=== PATIENT | female | born 1985 | race African-American/Black ===

== ENCOUNTER 2016-11-27 18:38 | Emergency (ER) | payer BC ==
[~2016-11-27] VITALS: Ht 149.9 cm; Wt 87.1 kg
[~2016-11-27 18:38] MED LIST: HYDR-2758 PO; HYDR-971 PO; LEVO25TA4 PO; NIFE10CA PO; ONDA4TAB10 SL; PANT20TA2 PO
[2016-11-27] MEDS ORDERED: IV NORMAL SALINE 1000ML BAG 1,000 ML IV ONE (19:45)
[2016-11-27] MEDS ORDERED: ONDANSETRON PF 4 MG/2 ML VIAL. IV PRN (19:45)
[2016-11-27 19:50] LABS: BILIRUBIN,URINE NEGATIVE (NEG); GLUCOSE,URINE NEGATIVE (NEG); NITRITE,URINE NEGATIVE (NEG); PROTEIN,URINE NEGATIVE (NEG-TRACE)
[2016-11-27] MEDS ORDERED: LIDO:MAALOX:DONNATAL 1:1:1 15 ML SINGLE DOSE SWSW ONE (20:00)
[2016-11-27] MEDS ORDERED: FAMOTIDINE 20 MG/2 ML VIAL IVP ONE (20:00)
[2016-11-27 20:04] LABS: BACTERIA,URINE FEW /HPF (0-FEW); RBC,URINE 0 /HPF (0-2); SQUAMOUS EPITHELIAL CELL,UR MOD /LPF
--- NOTE | 2016-11-27 20:04 | PHYS DOC ---
Past Medical History Past Medical History: Fibromyalgia, Hypothyroid, Migraines Additional Past Medical Histor: IBS Past Surgical History: Cholecystectomy, Hysterectomy, Tubal ligation Additional Past Surgical Histo: L)Ovarian cyst removed. Alcohol Use: Occasionally Drug Use: None Adult General Chief Complaint Chief Complaint: NAUSEA/VOMITING/DIARRHA HPI HPI 31-year-old female presenting to the emergency department today with nausea vomiting for the last week. Its worse with eating improved with rest. His pain that is nonradiating mild intermittent. She denies fevers or chills. No specific timing. Review of systems is negative for fevers chills headache cough shortness of breath. All other review of systems is negative unless otherwise noted in history of present illness. Pertinent physical exam findings showed a soft nontender abdomen without rebound tenderness or guarding. Negative McBurney's point. Negative Mathew sign. Otherwise unremarkable. ED course: 31-year-old female presenting with abdominal pain. Soft nontender abdomen. Labs obtained. Pepcid and GI cocktail given. labs obtained including ua and preg. ua equivocal. u cx neg. pt dced home to f/u with pcp in 2-3 days. pt comfortable with plan. Review of Systems Review of Systems SEE ABOVE. Current Medications Current Medications Current Medications Medications (Trade) Dose Ordered Sig/Charli Start Time Stop Time Status Last Admin Dose Admin Famotidine (Pepcid) 20 mg 1X ONCE 11/27/16 20:00 11/27/16 20:01 DC Multi-Ingredient Mouthwash/Gargle (Gi Cocktail Single Dose) 15 ml 1X ONCE 11/27/16 20:00 11/27/16 20:01 DC Ondansetron HCl (Zofran) 4 mg PRN Q30MIN PRN 11/27/16 19:45 11/27/16 21:35 DC 11/27/16 20:40 4 MG Sodium Chloride 1,000 ml @ 1,000 mls/hr 1X ONCE 11/27/16 19:45 11/27/16 20:44 DC 11/27/16 20:40 1,000 MLS/HR Allergies Allergies Allergies Coded Allergies Type Severity Reaction Last Updated Verified sulfamethoxazole Allergy Severe Angioedema. 02/04/15 Yes trimethoprim Allergy Severe Angioedema. 02/04/15 Yes prochlorperazine Allergy Intermediate Palpitations 12/05/15 Yes metoclopramide Adverse Reaction Severe Dystonia 12/05/15 Yes Physical Exam Physical Exam Constitutional: Well developed, well nourished, no acute distress, non-toxic appearance. [] HENT: Normocephalic, atraumatic, bilateral external ears normal, oropharynx moist, no oral exudates, nose normal. [] Eyes: PERRLA, EOMI, conjunctiva normal, no discharge. [] Neck: Normal range of motion, no tenderness, supple, no stridor. [] Cardiovascular:Heart rate regular rhythm, no murmur [] Lungs & Thorax: Bilateral breath sounds clear to auscultation [] Abdomen: see above Skin: Warm, dry, no erythema, no rash. [] Back: No tenderness, no CVA tenderness. [] Extremities: No tenderness, no cyanosis, no clubbing, ROM intact, no edema. [] Neurologic: Alert and oriented X 3, normal motor function, normal sensory function, no focal deficits noted. [] Psychologic: Affect normal, judgement normal, mood normal. [] Current Patient Data Vital Signs Vital Signs Date Time Temp Pulse Resp B/P (MAP) Pulse Ox O2 Delivery O2 Flow Rate FiO2 11/27/16 20:27 112 20 155/99 (117) 98 Room Air 11/27/16 19:42 99.3 99.3 Lab Values Laboratory Tests Test 11/27/16 18:48 11/27/16 19:36 11/27/16 20:00 POC Urine HCG, Qualitative Hcg negative (Negative) Urine Collection Type Unknown Urine Color Yellow Urine Clarity Clear Urine pH 7.0 Urine Specific [place] 1.010 Urine Protein Negative mg/dL (NEG-TRACE) Urine Glucose (UA) Negative mg/dL (NEG) Urine Ketones (Stick) Negative mg/dL (NEG) Urine Blood Negative (NEG) Urine Nitrite Negative (NEG) Urine Bilirubin Negative (NEG) Urine Urobilinogen Dipstick 1.0 mg/dL (0.2 mg/dL) Urine Leukocyte Esterase Moderate (NEG) Urine RBC 0 /HPF (0-2) Urine WBC 11-20 /HPF (0-4) Urine Squamous Epithelial Cells Mod /LPF Urine Bacteria Few /HPF (0-FEW) White Blood Count 7.4 x10^3/uL (4.0-11.0) Red Blood Count 4.97 x10^6/uL (3.50-5.40) Hemoglobin 14.8 g/dL (12.0-15.5) Hematocrit 42.0 % (36.0-47.0) Mean Corpuscular Volume 85 fL (79-100) Mean Corpuscular Hemoglobin 30 pg (25-35) Mean Corpuscular Hemoglobin Concent 35 g/dL (31-37) Red Cell Distribution Width 12.9 % (11.5-14.5) Platelet Count 404 x10^3/uL (140-400) H Neutrophils (%) (Auto) 50 % (31-73) Lymphocytes (%) (Auto) 42 % (24-48) Monocytes (%) (Auto) 6 % (0-9) Eosinophils (%) (Auto) 2 % (0-3) Basophils (%) (Auto) 1 % (0-3) Neutrophils # (Auto) 3.7 x10^3uL (1.8-7.7) Lymphocytes # (Auto) 3.1 x10^3/uL (1.0-4.8) Monocytes # (Auto) 0.4 x10^3/uL (0.0-1.1) Eosinophils # (Auto) 0.1 x10^3/uL (0.0-0.7) Basophils # (Auto) 0.1 x10^3/uL (0.0-0.2) Sodium Level 138 mmol/L (136-145) Potassium Level 3.9 mmol/L (3.5-5.1) Chloride Level 104 mmol/L (98-107) Carbon Dioxide Level 23 mmol/L (21-32) Anion Gap 11 (6-14) Blood Urea Nitrogen 9 mg/dL (7-20) Creatinine 0.7 mg/dL (0.6-1.0) Estimated GFR (Cockcroft-Gault) 117.3 BUN/Creatinine Ratio 13 (6-20) Glucose Level 100 mg/dL (70-99) H Calcium Level 9.3 mg/dL (8.5-10.1) Total Bilirubin 0.6 mg/dL (0.2-1.0) Aspartate Amino Transferase (AST) 26 U/L (15-37) Alanine Aminotransferase (ALT) 17 U/L (14-59) Alkaline Phosphatase 88 U/L (46-116) Total Protein 8.4 g/dL (6.4-8.2) H Albumin 4.0 g/dL (3.4-5.0) Albumin/Globulin Ratio 0.9 (1.0-1.7) L Lipase 115 U/L (73-393) Laboratory Tests 11/27/16 20:00 Laboratory Tests 11/27/16 20:00 Microbiology 11/27/16 Urine Culture - Final, Complete 11/27/16 Urine Culture Result 1 (JAYME) - Final, Complete EKG EKG [] Radiology/Procedures Radiology/Procedures [] Course & Med Decision Making Course & Med Decision Making Pertinent Labs and Imaging studies reviewed. (See chart for details) [] Dragon Disclaimer Dragon Disclaimer This electronic medical record was generated, in whole or in part, using a voice recognition dictation system. Departure Departure Impression: Primary Impression: Nausea and vomiting Disposition: HOME, SELF-CARE Condition: STABLE Referrals: NON,STAFF (PCP) JENNY SPARROW MD Patient Instructions: Nausea and Vomiting Scripts Famotidine (PEPCID) 40 Mg Tablet 40 MG PO HS, #7 TAB 0 Refills Prov: JOHNNA ALLEN MD 11/27/16 Ondansetron (ZOFRAN ODT) 4 Mg Tab.rapdis 1 TAB SL PRN Q8HRS Y for NAUSEA, #6 TAB Prov: JOHNNA ALLEN MD 11/27/16 Morphine Sulfate (MORPHINE SULFATE) 15 Mg Tablet 1 TAB PO PRN Q6-8HRS Y for SEVERE PAIN, #8 TAB Prov: JOHNNA ALLEN MD 11/27/16 JOHNNA ALLEN MD Nov 27, 2016 20:04
[2016-11-27 20:11] LABS: BASO # 0.1 x10^3/uL (0.0-0.2); BASO % 1 % (0-3); EOS % 2 % (0-3); HEMOGLOBIN 14.8 g/dL (12.0-15.5); LYMPH # 3.1 x10^3/uL (1.0-4.8); LYMPH % 42 % (24-48); MEAN CORPUSCULAR HEMOGLOBIN 30 pg (25-35); MEAN CORPUSCULAR HGB CONC 35 g/dL (31-37); MEAN CORPUSCULAR VOLUME 85 fL (79-100); MONO % 6 % (0-9); NEUT % 50 % (31-73); PLATELET COUNT 404 x10^3/uL (140-400); RED BLOOD COUNT 4.97 x10^6/uL (3.50-5.40); RED CELL DISTRIBUTION WIDTH 12.9 % (11.5-14.5); WHITE BLOOD COUNT 7.4 x10^3/uL (4.0-11.0)
[2016-11-27 20:27] VITALS: BP 155/99
[2016-11-27 20:33] LABS: CALCIUM 9.3 mg/dL (8.5-10.1); CREATININE 0.7 mg/dL (0.6-1.0); GFR 117.3; POTASSIUM 3.9 mmol/L (3.5-5.1)
[2016-11-27 20:39] LABS: ALBUMIN/GLOBULIN RATIO 0.9 (1.0-1.7); TOTAL BILIRUBIN 0.6 mg/dL (0.2-1.0); TOTAL PROTEIN 8.4 g/dL (6.4-8.2)
[2016-11-27] MEDS ORDERED: FAMO40TA57 PO (21:12)
[2016-11-27] MEDS ORDERED: MORP15TA PO (21:12)
[2016-11-27] MEDS ORDERED: ONDA4TAB10 SL (21:12)
== END 2016-11-27 21:20 | disposition home or self-care (01) ==
LOC: ER 18:38
DX: R11.2 Nausea with vomiting, unspecified (principal); R10.9 Unspecified abdominal pain; G43.909 Migraine, unspecified, not intractable, without status migrainosus; M79.7 Fibromyalgia; E03.9 Hypothyroidism, unspecified; Z90.49 Acquired absence of other specified parts of digestive tract; Z90.710 Acquired absence of both cervix and uterus; Z98.51 Tubal ligation status
CPT/HCPCS: 36415; 80053; 81001; 81025; 83690; 85027; 87086; 96361; 96374; 99284; J2405; J7030

== ENCOUNTER 2017-04-10 13:04 | Emergency (ER) | payer BC ==
[~2017-04-10 13:04] MED LIST changes: +FAMO40TA57 PO; +MORP15TA PO
[2017-04-10 14:10] LABS: BILIRUBIN,URINE NEGATIVE (NEG); GLUCOSE,URINE NEGATIVE (NEG); NITRITE,URINE NEGATIVE (NEG); PROTEIN,URINE 30 mg/dL (NEG-TRACE)
[2017-04-10 14:30] LABS: BACTERIA,URINE FEW /HPF (0-FEW); RBC,URINE 0 /HPF (0-2); SQUAMOUS EPITHELIAL CELL,UR OCC /LPF
[2017-04-10] MEDS ORDERED: ONDANSETRON ODT 4 MG TAB.RAPDIS. PO ONE (14:30)
[2017-04-10] MEDS ORDERED: HYDROcodone/APAP 5/325MG 1 TAB TABLET PO ONE (14:30)
[2017-04-10] MEDS ORDERED: PHENAZOPYRIDINE 200 MG TABLET. PO ONE (14:30)
[2017-04-10] MEDS ORDERED: ONDA4TAB10 PO (14:56)
[2017-04-10] MEDS ORDERED: CIPR500T94 PO (14:56)
[2017-04-10] MEDS ORDERED: PHEN-318 PO (14:56)
[2017-04-10] MEDS ORDERED: HYDR-2758 PO (14:56)
--- NOTE | 2017-04-10 14:56 | PHYS DOC ---
Past Medical History Past Medical History: Fibromyalgia, Hypothyroid, Migraines Additional Past Medical Histor: IBS Past Surgical History: Cholecystectomy, Hysterectomy, Tubal ligation Additional Past Surgical Histo: L)Ovarian cyst removed. Alcohol Use: Occasionally Drug Use: None Adult General Chief Complaint Chief Complaint: URINARY FREQUENCY HPI HPI He is a pleasant 32-year-old -Northern Irish female 003 who sent a hysterectomy presents with UTI symptoms like progressively worse over last week or so. Patient noted increased frequency and urgency we'll go now presently worst local soup with abdominal pain with no mild radiation to the left flank. She describesfevers or chills just increasing pain with increased frequency urgency. She denies any hematuria or vaginal bleeding. She denies any prior history of sexual transmitted diseases or recent trauma to her vagina. Patient denies any travel outside the country nausea, vomiting, diarrhea. Since pain is moderate worse with increased frequency and urgency Review of Systems Review of Systems Constitutional: Subjective fevers and chills not actual documented fever. Eyes: Denies change in visual acuity, redness, or eye pain [] HENT: Denies nasal congestion or sore throat [] Respiratory: Denies cough or shortness of breath [] Cardiovascular: No additional information not addressed in HPI [] GI: Complains of abdominal pain without nausea vomiting diarrhea or stool problems. : Does complain of dysuria urgency or frequency without hematuria. Musculoskeletal: Denies back pain or joint pain has slight flank pain on the left Integument: Denies rash or skin lesions [] Neurologic: Denies headache, focal weakness or sensory changes [] Endocrine: Denies polyuria or polydipsia [] Current Medications Current Medications Current Medications Medications (Trade) Dose Ordered Sig/Charli Start Time Stop Time Status Last Admin Dose Admin Acetaminophen/ Hydrocodone Bitart (Lortab 5/325) 2 tab 1X ONCE 04/10/17 14:30 04/10/17 14:31 DC 04/10/17 14:30 2 TAB Ondansetron HCl (Zofran Odt) 4 mg 1X ONCE 04/10/17 14:30 04/10/17 14:31 DC 04/10/17 14:29 4 MG Phenazopyridine HCl (Pyridium) 200 mg 1X ONCE 04/10/17 14:30 04/10/17 14:31 DC 04/10/17 14:30 200 MG Allergies Allergies Allergies Coded Allergies Type Severity Reaction Last Updated Verified sulfamethoxazole Allergy Severe Angioedema. 02/04/15 Yes trimethoprim Allergy Severe Angioedema. 02/04/15 Yes prochlorperazine Allergy Intermediate Palpitations 12/05/15 Yes metoclopramide Adverse Reaction Severe Dystonia 12/05/15 Yes Physical Exam Physical Exam Vital signs recorded on the chart patient noted to be tachycardic likely secondary to pain Constitutional: Well developed, well nourished, no acute distress, non-toxic appearance. [] Cardiovascular:Heart rate regular rhythm, no murmur [] Lungs & Thorax: Bilateral breath sounds clear to auscultation [] Abdomen: Bowel sounds normal, soft, no masses, no pulsatile masses. I'll tenderness to palpation in the suprapubic region with no voluntary guarding no rebound organomegaly. No Mathew's or McBurney's point tenderness to palpation.[ ] Skin: Warm, dry, no erythema, no rash. [] Back: No tenderness, no CVA tenderness. [] Neurologic: Alert and oriented X 3, Psychologic: Affect normal, judgement normal, mood normal. [] Current Patient Data Vital Signs Vital Signs Date Time Temp Pulse Resp B/P (MAP) Pulse Ox O2 Delivery O2 Flow Rate FiO2 04/10/17 13:28 98.8 107 18 98 Room Air 98.8 Lab Values Laboratory Tests Test 04/10/17 13:25 Urine Color Yellow Urine Clarity Clear Urine pH 8.0 Urine Specific [place] >=1.030 Urine Protein 30 mg/dL (NEG-TRACE) Urine Glucose (UA) Negative mg/dL (NEG) Urine Ketones (Stick) Negative mg/dL (NEG) Urine Blood Negative (NEG) Urine Nitrite Negative (NEG) Urine Bilirubin Negative (NEG) Urine Urobilinogen Dipstick 1.0 mg/dL (0.2 mg/dL) Urine Leukocyte Esterase Small (NEG) Urine RBC 0 /HPF (0-2) Urine WBC 1-4 /HPF (0-4) Urine Squamous Epithelial Cells Occ /LPF Urine Bacteria Few /HPF (0-FEW) Urine Mucus Mod /LPF EKG EKG [] Radiology/Procedures Radiology/Procedures [] Course & Med Decision Making Course & Med Decision Making Pertinent Labs and Imaging studies reviewed. (See chart for details) she presents with UTI symptoms on her urinalysis demonstrates bacteria, or blood cell count is elevated glucose esterase or nitrates. But given her symptoms and she'll be treated. with antibiotics Pyridium and some for breakthrough pain. [] Dragon Disclaimer Dragon Disclaimer This electronic medical record was generated, in whole or in part, using a voice recognition dictation system. Departure Departure Impression: Primary Impression: Abdominal pain Additional Impression: UTI (urinary tract infection) Disposition: 01 HOME, SELF-CARE Condition: STABLE Referrals: NO PCP (PCP) Patient Instructions: Urinary Frequency, Urinary Tract Infection Additional Instructions: My discharge plan Follow up: In addition patient is asked to followup with their primary doctor, within a week for followup examination and to address patient's ongoing medical conditions. . Patient is advised that in the Emergency Department primary complaints are addressed and only in light of known signs and symptoms. Patient should return immediately to the emergency department if new signs and symptoms develop or patient's condition worsens in any way. At time of discharge patient was in stable condition and had verbalized understanding of the discharge instructions. Although there is no obvious evidence of appendicitis or intra-abdominal catastrophe at this time requiring surgical intervention or immediate medical management you could still develop these issues in the future. I would ask that you return immediately for any increasing symptoms question concerns. Scripts Hydrocodone Bit/Acetaminophen (HYDROCODONE-APAP 5-325 ) 1 Each Tablet 1-2 TAB PO PRN Q6HRS Y for PAIN for 5 Days, #10 TAB 0 Refills Prov: MIRTA MANCUSO MD 04/10/17 Ondansetron (ZOFRAN ODT) 4 Mg Tab.rapdis 4 MG PO BID Y for NAUSEA/VOMITING for 5 Days, #10 TAB Prov: MIRTA MANCUSO MD 04/10/17 Phenazopyridine Hcl (PYRIDIUM) 200 Mg Tablet 200 MG PO TID for 3 Days, #9 TAB Prov: MIRTA MANCUSO MD 04/10/17 Ciprofloxacin Hcl (CIPRO) 500 Mg Tablet 1 TAB PO BID, #20 TAB Prov: MIRTA MANCUSO MD 04/10/17 Problem Qualifiers MIRTA MANCUSO MD Apr 10, 2017 14:56
[2017-04-10 15:25] VITALS: BP 145/95
== END 2017-04-10 15:25 | disposition home or self-care (01) ==
LOC: ER 13:04
DX: N39.0 Urinary tract infection, site not specified (principal); E03.9 Hypothyroidism, unspecified; M79.7 Fibromyalgia; K58.9 Irritable bowel syndrome, unspecified; Z90.49 Acquired absence of other specified parts of digestive tract; Z90.710 Acquired absence of both cervix and uterus; Z98.51 Tubal ligation status; Z88.2 Allergy status to sulfonamides; Z88.1 Allergy status to other antibiotic agents; Z88.8 Allergy status to other drugs, medicaments and biological substances
CPT/HCPCS: 81001; 87086; 99284; Q0162

== ENCOUNTER 2018-07-12 20:27 | Emergency (ER) | payer BC ==
[~2018-07-12] VITALS: Ht 149.9 cm; Wt 89.8 kg
[~2018-07-12 20:27] MED LIST changes: +CIPR500T94 PO; -HYDR-2758 PO; +HYDR-2761 PO; +HYDR-3164 PO; -HYDR-971 PO; +ONDA4TAB10 PO; +PHEN-318 PO
[2018-07-12 20:59] VITALS: BP 134/81
[2018-07-12] MEDS: HYDROcodone/APAP 5/325MG 1 TAB TABLET PO ONE (21:24)
--- NOTE | 2018-07-12 23:15 | PHYS DOC ---
Past Medical History Past Medical History: Fibromyalgia, Hypothyroid, Migraines, Sciatica Additional Past Medical Histor: IBS Past Surgical History: Cholecystectomy, Hysterectomy, Tubal ligation Additional Past Surgical Histo: L)Ovarian cyst removed. Alcohol Use: Occasionally Drug Use: None Adult General Chief Complaint Chief Complaint: LOWER EXT PAIN HPI HPI Patient is a 33 year old Afro-Sing[place]an female with history of irritable bowel syndrome and sciatica presents persistent left hip, buttock pain for the past several days. Denies trauma to this region. Patient's been evaluated at her PCP twice for the same condition and started on prednisone. Patient denies focal extremity weakness or loss of sensation. No loss of bowel or bladder sensation. No saddle anesthesia. Pain is with palpation, ambulation and movement. Patient states her pain is pearly controlled. No other acute symptoms or complaints. [] Review of Systems Review of Systems Review symptoms as per history of present illness. All other systems were reviewed and found to be within normal limits, except as documented in this note. Current Medications Current Medications Current Medications Medications (Trade) Dose Ordered Sig/Charli Start Time Stop Time Status Last Admin Dose Admin Acetaminophen/ Hydrocodone Bitart (Lortab 5/325) 2 tab 1X ONCE 07/12/18 22:00 07/12/18 22:00 DC 07/12/18 21:24 2 TAB Allergies Allergies Allergies Coded Allergies Type Severity Reaction Last Updated Verified sulfamethoxazole Allergy Severe Angioedema. 02/04/15 Yes trimethoprim Allergy Severe Angioedema. 02/04/15 Yes prochlorperazine Allergy Intermediate Palpitations 12/05/15 Yes metoclopramide Adverse Reaction Severe Dystonia 12/05/15 Yes Physical Exam Physical Exam Constitutional: Well developed, well nourished, moderate discomfort secondary to pain,. [] HENT: Normocephalic, atraumatic, bilateral external ears normal, oropharynx moist, no oral exudates, nose normal. [] Eyes: PERRL. [] Neck: Normal range of motion, no tenderness, supple, no stridor. [] Cardiovascular:Heart rate regular rhythm, no murmur [] Lungs & Thorax: Bilateral breath sounds clear to auscultation [] Abdomen: Bowel sounds normal, soft, no tenderness.[] Skin: Warm, dry, no erythema. [] Back: No CVA or midline CVA tenderness, left upper hip pain, tenderness with palpation and range of motion. Antalgic gait.[] Extremities: Lower extremity weakness or loss of sensation. Negative straight leg raising tests..[] Current Patient Data Vital Signs Vital Signs Date Time Temp Pulse Resp B/P (MAP) Pulse Ox O2 Delivery O2 Flow Rate FiO2 07/12/18 21:24 16 99 Room Air 07/12/18 20:59 100.2 120 134/81 (98) 100.2 EKG EKG [] Radiology/Procedures Radiology/Procedures [] Course & Med Decision Making Course & Med Decision Making Pertinent Labs and Imaging studies reviewed. (See chart for details) [Patient pain control while in the emergency department. Recommend close follow- up with PCP for further management of ongoing symptoms.] Dragon Disclaimer Dragon Disclaimer This electronic medical record was generated, in whole or in part, using a voice recognition dictation system. Departure Departure Impression: Primary Impression: Pain in left hip Disposition: HOME, SELF-CARE Condition: GOOD Patient Instructions: Hip Pain Additional Instructions: Please of directions provided to by your primary care provider. Contact his office tomorrow and schedule follow-up appointment.. MONICA CASTRO DO Jul 12, 2018 23:15
== END 2018-07-12 21:26 | disposition home or self-care (01) ==
LOC: ER 20:27
DX: M25.552 Pain in left hip (principal); M54.5 Low back pain; R53.1 Weakness; E03.9 Hypothyroidism, unspecified; G43.909 Migraine, unspecified, not intractable, without status migrainosus; K58.9 Irritable bowel syndrome, unspecified; Z90.49 Acquired absence of other specified parts of digestive tract; Z90.710 Acquired absence of both cervix and uterus; Z98.51 Tubal ligation status; Z88.2 Allergy status to sulfonamides; Z88.1 Allergy status to other antibiotic agents; Z88.8 Allergy status to other drugs, medicaments and biological substances
CPT/HCPCS: 99282

== ENCOUNTER → 2018-09-19 | Day surgery (SDC) | payer BC ==
[~2018-09-19] MED LIST changes: +HYDR50TA6 PO; +IV RINGERS,LACTATED 1000ML 1,000 ML IV SCH; +LIDOCAINE 2% PF 5 ML VIAL. ONE; +PROPOFOL 40 ML IV ONE
[2018-09-19 14:23] VITALS: BP 117/63
--- NOTE | 2018-09-19 22:48 | CONS ---
DATE OF CONSULTATION: 09/19/2018 REASON FOR CONSULTATION: Diarrhea and abdominal pain. HISTORY OF PRESENT ILLNESS: A 33-year-old -[place] female whose past medical history significant for anxiety, depression, fibromyalgia, hypertension, is seen with persistent abdominal pain, weight loss and diarrhea, has been present for the past several months. Family history is positive for Crohn's with an uncle. There is no melena and/or hematochezia with the diarrhea persists. With continued issues, she requests additional evaluation. PAST MEDICAL HISTORY: Anxiety, hypertension. ALLERGIES: REGLAN, MORPHINE, PROCHLORPERAZINE, TRIMETHOPRIM, AND SULFA. MEDICATIONS: Include Pepcid, hydrochlorothiazide and Zofran. FAMILY AND SOCIAL HISTORY: Significant for Crohn's with an uncle, breast cancer with mother and grandmother, colorectal cancer with grandfather. PAST SURGICAL HISTORY: Status post cholecystectomy, hysterectomy, tubal ligation. REVIEW OF SYSTEMS: As per records. PHYSICAL EXAMINATION: GENERAL: Reveals a well-nourished, well-developed -[place] female, who is alert, cooperative, in no acute distress. VITAL SIGNS: Temperature is 98.3, pulse 70, respirations 20. HEENT: Normocephalic and atraumatic head. Pupils and extraocular muscles are not tested. Sclerae anicteric. NECK: Supple. LUNGS: Clear. CARDIOVASCULAR: Reveals an S1, S2 without S3, S4 or appreciable murmur. ABDOMEN: Reveals soft abdomen, normal bowel sounds without appreciable hepatosplenomegaly. Left upper quadrant and left lower quadrant tenderness to deep palpation. EXTREMITIES: Reveals no cyanosis, clubbing or edema. IMPRESSION: Abdominal pain with diarrhea and a family history of Crohn's disease, the etiology is to be determined. Differential includes IBS, diabetes, celiac disease, collagenous colitis, malabsorption. Therefore, recommend upper endoscopy and colonoscopy. If these are unrevealing, a small bowel series would be pursued. ELVIN GARCIA MD DR: EMERITA/zheng JOB#: [id number] / [id number]
--- NOTE | 2018-09-20 17:07 | PATHOLOGY ---
[facility] Accession Number: [id number] . 01 Material submitted: . PART A: DUODENAL BIOPSY PART B: TERMINAL ILEUM BIOPSY PART C: RANDOM COLON BIOPSY . 01 Clinical history: . Abdominal pain, diarrhea A: Rule out celiac. B: Diarrhea C: Diarrhea . 02 Diagnosis: A. Duodenal biopsy: - No significant pathologic abnormalities, with few mucosal-associated lymphoid aggregates. . B. Terminal ileum biopsy: - No significant pathologic abnormalities, with several focally hyperplastic mucosal-associated lymphoid aggregates. . C. Colonic mucosa, random colon biopsy: - No significant pathologic abnormalities, with several mucosal-associated lymphoid aggregates. . (KEISHAM:donnie; 09/20/2018) MBR/09/20/2018 . 02 Comment: Sections of the duodenal biopsy reveal segments of duodenal and small intestine mucosa. Where best oriented, the mucosal villi show no sprue-like changes or significant inflammatory changes. There are a few mucosal-associated lymphoid aggregates. . Sections of the terminal ileum biopsy reveal multiple segments of small intestine mucosa. Where best oriented, the mucosal villi show no sprue-like changes or significant inflammatory changes. There are several focally hyperplastic mucosal-associated lymphoid aggregates. . Sections of the random colon biopsy reveal multiple segments of colonic mucosa containing several mucosal-associated lymphoid aggregates. There is no evidence of a chronic destructive colitis, lymphocytic colitis, or collagenous colitis. . (KEISHAM:donnie; 09/20/2018) . 02 Electronically signed: . Thomas Perez MD, Pathologist NPI- [id number] . 01 Gross description: . A. The specimen is received in formalin, labeled "Jin Aguila, duodenal biopsy", are multiple kelsey, mucosal fragments ranging from 0.1 cm up to 0.4 cm in greatest dimension and measuring 0.7 x 0.4 x 0.2 cm in aggregate, entirely submitted in A1. . B. The specimen is received in formalin, labeled "jin Aguila, terminal ileum, BX", are 4 irregular fragment of kelsey mucosal tissues ranging from a 0.4 cm up to 0.5 cm in greatest dimension and measuring 0.7 x 0.5 x 0.2 cm in aggregate, entirely submitted in B1. . C. The specimen is received in formalin, labeled "Jin Aguila, random colon BX", are several irregular fragment of kelsey mucosal tissues ranging from a 0.2 cm up to 0.8 cm in greatest dimension and measuring 1.0 x 0.7 x 0.2 cm in aggregate, entirely submitted in C1. (SWS; 09/19/2018) SHS/SHS . 02 Pathologist provided ICD-10: R10.9, R19.7 . 02 CPT . 029487, 011975, 389602 Specimen Comment: A courtesy copy of this report has been sent to Specimen Comment: [phone], . Specimen Comment: Report sent to / DR STEVEN Performed at: 01 [facility] [address], [place], [place] [id number] MD Florencio Albarado MD Phone: [phone] Performed at: 02 [facility] [address] [place], [place] [id number] MD Thomas Perez MD Phone: [phone]
== END | disposition home or self-care (01) ==
LOC: SURG 08:06
PROVIDERS: ATTEND Internal Medicine Gastroenterology
DX: K31.89 Other diseases of stomach and duodenum (principal); K64.0 First degree hemorrhoids; K52.9 Noninfective gastroenteritis and colitis, unspecified; F41.9 Anxiety disorder, unspecified; I10 Essential (primary) hypertension; M19.90 Unspecified osteoarthritis, unspecified site; F32.9 Major depressive disorder, single episode, unspecified; M79.7 Fibromyalgia; Z80.3 Family history of malignant neoplasm of breast; Z83.3 Family history of diabetes mellitus; Z82.49 Family history of ischemic heart disease and other diseases of the circulatory system; Z79.899 Other long term (current) drug therapy; Z90.710 Acquired absence of both cervix and uterus; Z90.49 Acquired absence of other specified parts of digestive tract; Z98.51 Tubal ligation status; Z88.5 Allergy status to narcotic agent; Z88.1 Allergy status to other antibiotic agents; Z88.8 Allergy status to other drugs, medicaments and biological substances
CPT/HCPCS: 43239; 45380; 88305; J2001; J2704

== ENCOUNTER → 2018-11-12 | Outpatient (CLI) | payer BC ==
[2018-09-19 14:23] VITALS: BP 117/63
[~2018-11-12] MED LIST changes: +BARIUM SULFATE 60% 355 ML SUSP PO ONE; -IV RINGERS,LACTATED 1000ML 1,000 ML IV SCH; -LIDOCAINE 2% PF 5 ML VIAL. ONE; -PROPOFOL 40 ML IV ONE
--- NOTE | 2018-11-12 11:23 | RAD ---
Small bowel series, 11/12/2018: HISTORY: Chronic diarrhea and abdominal pain The preliminary abdominal image demonstrates surgical clips in the right upper quadrant. The abdominal gas pattern is unremarkable. There is no evidence of organomegaly. Imaging was performed following oral ingestion of liquid barium. 0.5 minutes of fluoroscopy time was utilized. 4 fluoroscopic spot images were recorded. The small bowel loops are of normal caliber with no evidence of thickening of their folds. There was prompt passage of the contrast through the small bowel appearing in the colon at 20 minutes. The terminal ileum shows no abnormality. IMPRESSION: No significant small bowel abnormality is detected. Electronically signed by: Johnnie Teresa MD (11/12/2018 11:20 AM) [facility]
== END | disposition home or self-care (01) ==
LOC: RAD 10:22
PROVIDERS: ATTEND Internal Medicine Gastroenterology
DX: K52.9 Noninfective gastroenteritis and colitis, unspecified (principal); Z83.79 Family history of other diseases of the digestive system
CPT/HCPCS: 74250

== ENCOUNTER → 2019-12-30 | Outpatient (CLI) | payer BC ==
[2018-09-19 14:23] VITALS: BP 117/63
[~2019-12-30] MED LIST changes: -BARIUM SULFATE 60% 355 ML SUSP PO ONE
--- NOTE | 2019-12-30 12:57 | RAD ---
Gastric Emptying Study Indication: Postprandial epigastric pain.. Symptoms x1 year. Procedure: Anterior and posterior projection static images are obtained over the stomach following oral administration of 2 mCi of 99 M technetium sulfur colloid in a solid meal. Time points include an immediate baseline, and 1, 2, 3, and 4 hours post ingestion. Findings: There is progressive emptying of the stomach on sequential images. Percentage retention at... One hour is 47% (normal 34.8-91%). Two hours 8% (normal 2.7-60%). Three hours 0% (normal 0.5-28%). Four hours 0% (normal 0-10%). Impression: Normal 4 hour protocol gastric emptying study. Consensus Recommendations for Gastric Emptying Scintigraphy: A Joint Report of the [place] [employer] Society and the Society of Nuclear Medicine: J. Nucl. Med. Technol. August 2007 vol. 36 no. 1 44-54 Grading for severity of delayed GE based on the 4-h value: grade 1 (mild): 11?20% retention at 4 h grade 2 (moderate): 21?35% retention at 4 h grade 3 (severe): 36?50% retention at 4 h grade 4 (very severe): >50% retention at 4 h. Electronically signed by: Clinton Martinez MD (12/30/2019 12:55 PM) [id number]
== END | disposition home or self-care (01) ==
LOC: NM 08:12
PROVIDERS: ATTEND Internal Medicine Gastroenterology
DX: R10.13 Epigastric pain (principal)
CPT/HCPCS: 78264; A9541

== ENCOUNTER 2021-01-30 14:42 | Emergency (ER) | payer BC ==
[~2021-01-30] VITALS: Ht 124.5 cm; Wt 100.0 kg
[~2021-01-30 14:42] MED LIST changes: -HYDR50TA6 PO; +HYDR50TA9 PO
--- NOTE | 2021-01-30 14:57 | PHYS DOC ---
Past Medical History Past Medical History: Fibromyalgia, Hypothyroid, Migraines, Sciatica Additional Past Medical Histor: IBS Past Surgical History: Cholecystectomy, Hysterectomy, Tubal ligation Additional Past Surgical Histo: L)Ovarian cyst removed. Smoking Status: Never Smoker Alcohol Use: Occasionally Drug Use: None General Adult EDM: Chief Complaint: right side abdominal pain HPI: HPI: Patient is a 35 year old female who present to ER due to right abdominal pain, started suddenly about 2 PM today. Patient denies any history of kidney stone. Patient denies any nausea vomiting. Patient has history of hysterectomy, she still has her appendix. Patient denies any fever, no cough, no trouble breathing. Patient any chest pain. Review of Systems: Review of Systems: Constitutional: Denies fever or chills. [] Eyes: Denies change in visual acuity. [] HENT: Denies nasal congestion or sore throat. [] Respiratory: Denies cough or shortness of breath. [] Cardiovascular: Denies chest pain or edema. [] GI: Positive for right abdominal pain. : Denies dysuria. [] Musculoskeletal: Denies back pain or joint pain. [] Integument: Denies rash. [] Neurologic: Denies headache, focal weakness or sensory changes. [] Endocrine: Denies polyuria or polydipsia. [] Lymphatic: Denies swollen glands. [] Psychiatric: Denies depression or anxiety. [] Heart Score: C/O Chest Pain: N/A Risk Factors: Risk Factors: DM, Current or recent (<one month) smoker, HTN, HLP, family history of CAD, obesity. Risk Scores: Score 0 - 3: 2.5% MACE over next 6 weeks - Discharge Home Score 4 - 6: 20.3% MACE over next 6 weeks - Admit for Clinical Observation Score 7 - 10: 72.7% MACE over next 6 weeks - Early Invasive Strategies Allergies: Allergies: Allergies Coded Allergies Type Severity Reaction Last Updated Verified sulfamethoxazole Allergy Severe Angioedema. 09/19/18 Yes trimethoprim Allergy Severe Angioedema. 09/19/18 Yes morphine Allergy Intermediate 09/19/18 Yes prochlorperazine Allergy Intermediate Palpitations 09/19/18 Yes metoclopramide Adverse Reaction Severe Dystonia 09/19/18 Yes Physical Exam: PE: Constitutional: Well developed, well nourished, in acute distress due to pain HENT: Normocephalic, atraumatic, bilateral external ears normal, oropharynx moist, no oral exudates, nose normal. [] Eyes: PERRLA, EOMI, conjunctiva normal, no discharge. [] Neck: Normal range of motion, no tenderness, supple, no stridor. [] Cardiovascular:Heart rate regular rhythm, no murmur [] Lungs & Thorax: Bilateral breath sounds clear to auscultation [] Abdomen: Bowel sounds normal, soft, right side lower abdominal tender to palpation, no masses, no pulsatile masses. [] Skin: Warm, dry, no erythema, no rash. [] Back: No tenderness, no CVA tenderness. [] Extremities: No tenderness, no cyanosis, no clubbing, ROM intact, no edema. [] Neurologic: Alert and oriented X 3, normal motor function, normal sensory function, no focal deficits noted. [] Psychologic: Affect normal, judgement normal, mood normal. [] Current Patient Data: Labs: Laboratory Tests Test 01/30/21 14:58 01/30/21 16:57 White Blood Count 10.9 x10^3/uL Red Blood Count 4.96 x10^6/uL Hemoglobin 14.8 g/dL Hematocrit 41.5 % Mean Corpuscular Volume 84 fL Mean Corpuscular Hemoglobin 30 pg Mean Corpuscular Hemoglobin Concent 36 g/dL Red Cell Distribution Width 13.8 % Platelet Count 504 x10^3/uL Neutrophils (%) (Auto) 59 % Lymphocytes (%) (Auto) 35 % Monocytes (%) (Auto) 5 % Eosinophils (%) (Auto) 1 % Basophils (%) (Auto) 1 % Neutrophils # (Auto) 6.4 x10^3/uL Lymphocytes # (Auto) 3.8 x10^3/uL Monocytes # (Auto) 0.5 x10^3/uL Eosinophils # (Auto) 0.0 x10^3/uL Basophils # (Auto) 0.1 x10^3/uL Sodium Level 137 mmol/L Potassium Level 4.0 mmol/L Chloride Level 101 mmol/L Carbon Dioxide Level 24 mmol/L Anion Gap 12 Blood Urea Nitrogen 14 mg/dL Creatinine 0.9 mg/dL Estimated GFR (Cockcroft-Gault) 85.7 BUN/Creatinine Ratio 16 Glucose Level 135 mg/dL Calcium Level 9.7 mg/dL Magnesium Level 2.0 mg/dL Total Bilirubin 1.5 mg/dL Aspartate Amino Transf (AST/SGOT) 10 U/L Alanine Aminotransferase (ALT/SGPT) 16 U/L Alkaline Phosphatase 111 U/L Total Protein 8.4 g/dL Albumin 3.9 g/dL Albumin/Globulin Ratio 0.9 Lipase 116 U/L Urine Collection Type Unknown Urine Color Yellow Urine Clarity Clear Urine pH 6.5 Urine Specific Hamilton >=1.030 Urine Protein Negative mg/dL Urine Glucose (UA) Negative mg/dL Urine Ketones (Stick) Trace mg/dL Urine Blood Negative Urine Nitrite Negative Urine Bilirubin Small Urine Urobilinogen Dipstick 1.0 mg/dL Urine Leukocyte Esterase Negative Urine RBC 0 /HPF Urine WBC 1-4 /HPF Urine Squamous Epithelial Cells Many /LPF Urine Bacteria Moderate /HPF Urine Mucus Marked /LPF Current Medications Medications (Trade) Dose Ordered Sig/Charli Route PRN Reason Start Time Stop Time Status Last Admin Dose Admin Ketorolac Tromethamine (Toradol 30mg Vial) 30 mg 1X ONCE IVP 01/30/21 15:00 01/30/21 15:01 DC 01/30/21 15:03 Fentanyl Citrate (Fentanyl 2ml Vial) 100 mcg 1X ONCE IVP 01/30/21 15:15 01/30/21 15:20 DC 01/30/21 15:19 Laboratory Tests Test 01/30/21 14:58 White Blood Count 10.9 x10^3/uL Red Blood Count 4.96 x10^6/uL Hemoglobin 14.8 g/dL Hematocrit 41.5 % Mean Corpuscular Volume 84 fL Mean Corpuscular Hemoglobin 30 pg Mean Corpuscular Hemoglobin Concent 36 g/dL Red Cell Distribution Width 13.8 % Platelet Count 504 x10^3/uL Neutrophils (%) (Auto) 59 % Lymphocytes (%) (Auto) 35 % Monocytes (%) (Auto) 5 % Eosinophils (%) (Auto) 1 % Basophils (%) (Auto) 1 % Neutrophils # (Auto) 6.4 x10^3/uL Lymphocytes # (Auto) 3.8 x10^3/uL Monocytes # (Auto) 0.5 x10^3/uL Eosinophils # (Auto) 0.0 x10^3/uL Basophils # (Auto) 0.1 x10^3/uL Sodium Level 137 mmol/L Potassium Level 4.0 mmol/L Chloride Level 101 mmol/L Carbon Dioxide Level 24 mmol/L Anion Gap 12 Blood Urea Nitrogen 14 mg/dL Creatinine 0.9 mg/dL Estimated GFR (Cockcroft-Gault) 85.7 BUN/Creatinine Ratio 16 Glucose Level 135 mg/dL Calcium Level 9.7 mg/dL Magnesium Level 2.0 mg/dL Total Bilirubin 1.5 mg/dL Aspartate Amino Transf (AST/SGOT) 10 U/L Alanine Aminotransferase (ALT/SGPT) 16 U/L Alkaline Phosphatase 111 U/L Total Protein 8.4 g/dL Albumin 3.9 g/dL Albumin/Globulin Ratio 0.9 Lipase 116 U/L Current Medications Medications (Trade) Dose Ordered Sig/Charli Route PRN Reason Start Time Stop Time Status Last Admin Dose Admin Ketorolac Tromethamine (Toradol 30mg Vial) 30 mg 1X ONCE IVP 01/30/21 15:00 01/30/21 15:01 DC 01/30/21 15:03 Fentanyl Citrate (Fentanyl 2ml Vial) 100 mcg 1X ONCE IVP 01/30/21 15:15 01/30/21 15:20 DC 01/30/21 15:19 EKG: EKG: [] Radiology/Procedures: Radiology/Procedures: [facility] [address] [place] [address] IMAGING REPORT Signed PATIENT: PINO MURPHY NACCOUNT: [id number] : 1985 LOCATION: ER AGE: 35 SEX: F EXAM STATUS: PRE ER ORD. PHYSICIAN: ELI ALCARAZ DO REASON: right side flank pain PROCEDURE: CT ABDOMEN PELVIS WO CONTRAST CT ABDOMEN+PELVIS WO History: Right-sided flank pain. Comparison: CT abdomen and pelvis 11/14/2015. Technique: Noncontrast CT of the abdomen and pelvis. Findings: The lung bases are clear. The unenhanced liver is unremarkable. Status post cholecystectomy. No biliary ductal dilatation. The pancreas, spleen, adrenals and kidneys are unremarkable. No hydronephrosis or perinephric stranding. The bladder is partially decompressed without focal abnormality. Postsurgical changes from hysterectomy. The stomach and small bowel are unremarkable. The colon has a mild to moderate stool burden. There is minimal wall thickening at the distal sigmoid colon and trace adjacent pelvic fluid. No abdominal pelvic adenopathy. The vasculature is within normal limits. Soft tissues are unremarkable. No acute osseous abnormalities. Impression: 1. Minimal wall thickening of the distal sigmoid colon and adjacent fluid could possibly represent a mild colitis. Correlate with symptoms. Pelvic fluid may also be physiologic in a premenopausal female. 2. No nephrolithiasis, hydronephrosis or perinephric inflammatory changes. 3. Status post cholecystectomy. Electronically signed by: Servando Yu MD (01/30/2021 3:56 PM) [id number] DICTATED and SIGNED BY: SERVANDO YU MD DATE: 01/30/21 [id number] 0 Course & Med Decision Making: Course & Med Decision Making Pertinent Labs and Imaging studies reviewed. (See chart for details) Patient is a 25-year-old who presented to ER due to right-sided abdominal pain rating to her right foot lower abdominal area, lab work and CT scan did not show any acute problem. Patient was given pain medication in ER, she feel much better. Patient be discharged home. Dragon Disclaimer: [employer] Disclaimer: This electronic medical record was generated, in whole or in part, using a voice recognition dictation system. Departure Departure Impression: Primary Impression: Abdominal pain Disposition: 01 HOME / SELF CARE / HOMELESS Condition: STABLE Referrals: NON,STAFF (PCP) Follow-up with your family physician as needed. Please follow up with [facility] this week. [address], [address] [place] [address] Phone number: [phone] Patient Instructions: Abdominal Pain Additional Instructions: Thank you for visiting our Emergency Department. We appreciate you trusting us with your care. If any additional problems come up don't hesitate to return to visit us. Please follow up with your primary care provider so they can plan additional care if needed and know about the problem that you had. If symptoms worsen come back to the Emergency Department. Any concerning symptoms that start such as chest pain, shortness of air, weakness or numbness on one side of the body, running high fevers or any other concerning symptoms return to the ER. Scripts Tramadol Hcl (TRAMADOL HCL) 50 Mg Tablet 50 MG PO Q6HRS PRN for PAIN, #12 TAB Prov: ELI ALCARAZ DO 01/30/21 ELI ALCARAZ DO Jan 30, 2021 14:57
[2021-01-30] MEDS ORDERED: KETOROLAC 30 MG/ML VIAL. IVP ONE (15:00)
[2021-01-30 15:09] LABS: BASO # 0.1 x10^3/uL (0.0-0.2); BASO % 1 % (0-3); EOS % 1 % (0-3); HEMATOCRIT 41.5 % (36.0-47.0); HEMOGLOBIN 14.8 g/dL (12.0-15.5); LYMPH # 3.8 x10^3/uL (1.0-4.8); LYMPH % 35 % (24-48); MEAN CORPUSCULAR HEMOGLOBIN 30 pg (25-35); MEAN CORPUSCULAR HGB CONC 36 g/dL (31-37); MEAN CORPUSCULAR VOLUME 84 fL (79-100); MONO # 0.5 x10^3/uL (0.0-1.1); MONO % 5 % (0-9); NEUT # 6.4 x10^3/uL (1.8-7.7); NEUT % 59 % (31-73); PLATELET COUNT 504 x10^3/uL (140-400); RED BLOOD COUNT 4.96 x10^6/uL (3.50-5.40); RED CELL DISTRIBUTION WIDTH 13.8 % (11.5-14.5); WHITE BLOOD COUNT 10.9 x10^3/uL (4.0-11.0)
[2021-01-30] MEDS ORDERED: fentaNYL PF VIAL 100 MCG/2 ML VIAL IVP ONE (15:15)
[2021-01-30 15:18] LABS: CALCIUM 9.7 mg/dL (8.5-10.1); CREATININE 0.9 mg/dL (0.6-1.0); GFR 85.7
[2021-01-30 15:24] LABS: ALBUMIN 3.9 g/dL (3.4-5.0); ALBUMIN/GLOBULIN RATIO 0.9 (1.0-1.7); TOTAL BILIRUBIN 1.5 mg/dL (0.2-1.0); TOTAL PROTEIN 8.4 g/dL (6.4-8.2)
--- NOTE | 2021-01-30 15:58 | RAD ---
CT ABDOMEN+PELVIS WO History: Right-sided flank pain. Comparison: CT abdomen and pelvis 11/14/2015. Technique: Noncontrast CT of the abdomen and pelvis. Findings: The lung bases are clear. The unenhanced liver is unremarkable. Status post cholecystectomy. No bilia ry ductal dilatation. The pancreas, spleen, adrenals and kidneys are unremarkable. No hydronephrosis or perinephric stranding. The bladder is partially decompressed without focal abnormality. Postsurgic al changes from hysterectomy. The stomach and small bowel are unremarkable. The colon has a mild to moderate stool burden. There is minimal wall thickening at the distal sigmoid colon and trace adjacent pelvic fluid. No abdominal pe lvic adenopathy. The vasculature is within normal limits. Soft tissues are unremarkable. No acute oss eous abnormalities. Impression: 1. Minimal wall thickening of the distal sigmoid colon and adjacent fluid could possibly represent a mild colitis. Correlate with symptoms. Pelvic fluid may also be physiologic in a premenopausal femal e. 2. No nephrolithiasis, hydronephrosis or perinephric inflammatory changes. 3. Status post cholecystectomy. Electronically signed by: Servnado Yu MD (01/30/2021 3:56 PM) [id number]
[2021-01-30 17:06] LABS: BILIRUBIN,URINE SMALL (NEG); CLARITY,URINE CLEAR; COLOR,URINE YELLOW; NITRITE,URINE NEGATIVE (NEG); PH,URINE 6.5 (<5.0-8.0); PROTEIN,URINE NEGATIVE (NEG-TRACE)
[2021-01-30 17:16] LABS: BACTERIA,URINE MODERATE /HPF (0-FEW); RBC,URINE 0 /HPF (0-2)
[2021-01-30] MEDS ORDERED: TRAM50TA PO (17:32)
[2021-01-30 18:03] VITALS: BP 166/99
== END 2021-01-30 18:05 | disposition home or self-care (01) ==
LOC: ER 14:42
DX: R10.31 Right lower quadrant pain (principal); G43.909 Migraine, unspecified, not intractable, without status migrainosus; K58.9 Irritable bowel syndrome, unspecified; E03.9 Hypothyroidism, unspecified; Z90.49 Acquired absence of other specified parts of digestive tract; Z98.51 Tubal ligation status; Z90.710 Acquired absence of both cervix and uterus; Z88.1 Allergy status to other antibiotic agents; Z88.2 Allergy status to sulfonamides; Z88.5 Allergy status to narcotic agent; Z88.8 Allergy status to other drugs, medicaments and biological substances
CPT/HCPCS: 36415; 74176; 80053; 81001; 83690; 83735; 85025; 87086; 96374; 96375; 99285; J1885; J3010